=== PATIENT | female | born 1945 | race Caucasian/White ===

== ENCOUNTER 2017-06-11 09:06 | Emergency (ER) | payer MEDICARE, OTHER ==
[2017-06-11] MEDS: HYDROcodone/APAP 5/325MG 1 TAB TABLET PO ×2 (09:54)
[2017-06-11 10:00] LABS: ADD MAN DIFF? NO
[2017-06-11 10:05] LABS: BASO # 0.1 x10^3/uL (0.0-0.2); BASO % 1 % (0-3); EOS # 0.2 x10^3/uL (0.0-0.7); EOS % 2 % (0-3); HEMATOCRIT 46.8 % (36.0-47.0); HEMOGLOBIN 15.5 g/dL (12.0-15.5); LYMPH # 2.6 x10^3/uL (1.0-4.8); LYMPH % 26 % (24-48); MEAN CORPUSCULAR HEMOGLOBIN 29 pg (25-35); MEAN CORPUSCULAR HGB CONC 33 g/dL (31-37); MEAN CORPUSCULAR VOLUME 88 fL (79-100); MONO # 0.6 x10^3/uL (0.0-1.1); MONO % 6 % (0-9); NEUT # 6.4 x10^3uL (1.8-7.7); NEUT % 65 % (31-73); PLATELET COUNT 324 x10^3/uL (140-400); RED BLOOD COUNT 5.31 x10^6/uL (3.50-5.40); RED CELL DISTRIBUTION WIDTH 14.3 % (11.5-14.5); WHITE BLOOD COUNT 9.9 x10^3/uL (4.0-11.0)
[2017-06-11 10:14] LABS: ANION GAP 9 (6-14); BLOOD UREA NITROGEN 18 mg/dL (7-20); BUN/CREATININE RATIO 23 (6-20); CARBON DIOXIDE 30 mmol/L (21-32); CHLORIDE 101 mmol/L (98-107); CREATININE 0.8 mg/dL (0.6-1.0); GFR 71.1; GLUCOSE 126 mg/dL (70-99); POTASSIUM 4.4 mmol/L (3.5-5.1); SODIUM 140 mmol/L (136-145)
[2017-06-11 10:20] LABS: ALBUMIN 3.6 g/dL (3.4-5.0); ALK PHOS 87 U/L (46-116); ALT (SGPT) 23 U/L (14-59); AST (SGOT) 19 U/L (15-37); TOTAL BILIRUBIN 0.4 mg/dL (0.2-1.0); TOTAL PROTEIN 7.3 g/dL (6.4-8.2); URIC ACID 7.5 mg/dL (2.6-6.0)
== END 2017-06-11 11:16 | disposition home or self-care (01) ==
LOC: ER 09:06
DX: M10.9 Gout, unspecified (principal); J44.9 Chronic obstructive pulmonary disease, unspecified; E78.00 Pure hypercholesterolemia, unspecified; E11.9 Type 2 diabetes mellitus without complications; I10 Essential (primary) hypertension; G89.29 Other chronic pain; Z88.0 Allergy status to penicillin; Z88.8 Allergy status to other drugs, medicaments and biological substances; Z91.018 Allergy to other foods
CPT/HCPCS: 36415; 73630; 80053; 84550; 85025; 99285-25

== ENCOUNTER 2017-06-24 16:58 | Inpatient (IN) | payer MEDICARE, OTHER ==
[2017-06-24 18:14] LABS: INFLUENZA A PATIENT NEGATIVE (NEGATIVE); INFLUENZA B PATIENT NEGATIVE (NEGATIVE); OBC FLU VALID
[2017-06-24 18:18] LABS: HEMATOCRIT 43.2 % (36.0-47.0); HEMOGLOBIN 14.4 g/dL (12.0-15.5); MEAN CORPUSCULAR HEMOGLOBIN 29 pg (25-35); MEAN CORPUSCULAR HGB CONC 33 g/dL (31-37); MEAN CORPUSCULAR VOLUME 87 fL (79-100); PLATELET COUNT 370 x10^3/uL (140-400); RED BLOOD COUNT 4.98 x10^6/uL (3.50-5.40); RED CELL DISTRIBUTION WIDTH 14.5 % (11.5-14.5); WHITE BLOOD COUNT 10.2 x10^3/uL (4.0-11.0)
[2017-06-24 18:37] LABS: ALBUMIN 3.2 g/dL (3.4-5.0); ALBUMIN/GLOBULIN RATIO 0.7 (1.0-1.7); ALK PHOS 89 U/L (46-116); ALT (SGPT) 28 U/L (14-59); ANION GAP 6 (6-14); AST (SGOT) 24 U/L (15-37); BLOOD UREA NITROGEN 11 mg/dL (7-20); BUN/CREATININE RATIO 16 (6-20); CALCIUM 9.4 mg/dL (8.5-10.1); CARBON DIOXIDE 33 mmol/L (21-32); CHLORIDE 99 mmol/L (98-107); CREATININE 0.7 mg/dL (0.6-1.0); GLUCOSE 97 mg/dL (70-99); POTASSIUM 4.2 mmol/L (3.5-5.1); SODIUM 138 mmol/L (136-145); TOTAL BILIRUBIN 0.4 mg/dL (0.2-1.0); TOTAL PROTEIN 7.5 g/dL (6.4-8.2)
[2017-06-24] MEDS: ALBUTEROL SULFATE 2.5 MG/3 ML NEBU. NEB (19:30)
[2017-06-24] MEDS: BUDESONIDE 0.5 MG/2 ML NEBU. NEB (19:30)
[2017-06-24] MEDS ORDERED: NON FORMULARY ITEM (Albuterol Sulfate (Ventolin Hfa Inhaler) 2 PUFF) INH (20:00)
[2017-06-24] MEDS: LACTOBACILLUS RHAMNOSUS GG 1 CAPSULE. PO (20:59)
[2017-06-24] MEDS ORDERED: POTASSIUM GLUCONATE 595 MG PO (21:00)
[2017-06-24] MEDS: SIMVASTATIN 40 MG TABLET. PO (21:00)
[2017-06-24] MEDS: LISINOPRIL 20 MG TABLET PO (21:00)
[2017-06-24] MEDS: methylPREDNISolone SOD SUCC PF 125 MG/2 ML VIAL. IV (21:00)
[2017-06-24] MEDS ORDERED: NON FORMULARY ITEM (Diclofenac Sodium 1 TAB) PO (21:00)
[2017-06-24] MEDS ORDERED: NON FORMULARY ITEM (Budesonide/Formoterol Fumarate (Symbicort 160-4.5 Mcg Inhaler) 2 PUFF) IH (21:00)
[2017-06-25] MEDS: BUDESONIDE 0.5 MG/2 ML NEBU. NEB ×2 (07:22→19:19)
[2017-06-25] MEDS: ALBUTEROL SULFATE 2.5 MG/3 ML NEBU. NEB ×4 (07:23→19:20)
[2017-06-25] MEDS: LACTOBACILLUS RHAMNOSUS GG 1 CAPSULE. PO ×2 (08:29→21:17)
[2017-06-25] MEDS: CALCIUM CARBONATE 500 MG TABLET PO (08:29)
[2017-06-25] MEDS: CETIRIZINE HCL 10 MG TABLET. PO (08:29)
[2017-06-25] MEDS: methylPREDNISolone SOD SUCC PF 125 MG/2 ML VIAL. IV ×2 (08:30→21:17)
[2017-06-25] MEDS: MELOXICAM 7.5 MG TABLET PO (08:30)
[2017-06-25] MEDS: metFORMIN XR 500 MG TAB.ER.24H PO ×2 (08:30→17:29)
[2017-06-25] MEDS: PANTOPRAZOLE 40 MG TABLET.DR. PO (08:30)
[2017-06-25] MEDS: IPRATRPIUM/ALBUTEROL 0.5/2.5MG 3 ML NEBU. NEB ×4 (09:00→19:19)
[2017-06-25] MEDS: NICOTINE 21MG PATCH. TD (11:25)
[2017-06-25] MEDS: hydroCHLOROthiazide 12.5 MG CAPSULE PO (11:25)
[2017-06-25] MEDS: ACETAMINOPHEN 500 MG TABLET PO ×2 (11:25→21:18)
[2017-06-25] MEDS: guaiFENesin/CODEINE 100mg/10mg 5 ML LIQUID PO ×2 (15:36→21:17)
[2017-06-25] MEDS: SIMVASTATIN 40 MG TABLET. PO (21:18)
[2017-06-25] MEDS: LISINOPRIL 20 MG TABLET PO (21:18)
[2017-06-26] MEDS: IPRATRPIUM/ALBUTEROL 0.5/2.5MG 3 ML NEBU. NEB ×4 (07:09→19:51)
[2017-06-26] MEDS: BUDESONIDE 0.5 MG/2 ML NEBU. NEB ×2 (07:09→19:51)
[2017-06-26] MEDS: guaiFENesin/CODEINE 100mg/10mg 5 ML LIQUID PO ×2 (08:02→20:16)
[2017-06-26] MEDS: MELOXICAM 7.5 MG TABLET PO (08:02)
[2017-06-26] MEDS: hydroCHLOROthiazide 12.5 MG CAPSULE PO (08:03)
[2017-06-26] MEDS: PANTOPRAZOLE 40 MG TABLET.DR. PO (08:03)
[2017-06-26] MEDS: CETIRIZINE HCL 10 MG TABLET. PO (08:03)
[2017-06-26] MEDS: ACETAMINOPHEN 500 MG TABLET PO (08:03)
[2017-06-26] MEDS: metFORMIN XR 500 MG TAB.ER.24H PO ×2 (08:03→17:49)
[2017-06-26] MEDS: CALCIUM CARBONATE 500 MG TABLET PO (08:03)
[2017-06-26] MEDS: methylPREDNISolone SOD SUCC PF 125 MG/2 ML VIAL. IV (08:04)
[2017-06-26] MEDS: LACTOBACILLUS RHAMNOSUS GG 1 CAPSULE. PO ×2 (08:04→20:16)
[2017-06-26] MEDS: NICOTINE 21MG PATCH. TD (09:04)
[2017-06-26] MEDS: predniSONE 10 MG TABLET PO (09:05)
[2017-06-26] MEDS: SIMVASTATIN 40 MG TABLET. PO (20:16)
[2017-06-26] MEDS: LISINOPRIL 20 MG TABLET PO (20:16)
[2017-06-26] MEDS: BENZOCAINE/MENTHOL LOZENGE. PO (20:16)
[2017-06-26] MEDS: traMADol 50 MG TABLET PO (20:17)
[2017-06-27] MEDS: IPRATRPIUM/ALBUTEROL 0.5/2.5MG 3 ML NEBU. NEB (07:20)
[2017-06-27] MEDS: BUDESONIDE 0.5 MG/2 ML NEBU. NEB (07:20)
[2017-06-27] MEDS: MELOXICAM 7.5 MG TABLET PO (08:44)
[2017-06-27] MEDS: PANTOPRAZOLE 40 MG TABLET.DR. PO (08:44)
[2017-06-27] MEDS: metFORMIN XR 500 MG TAB.ER.24H PO (08:44)
[2017-06-27] MEDS: CETIRIZINE HCL 10 MG TABLET. PO (08:44)
[2017-06-27] MEDS: LACTOBACILLUS RHAMNOSUS GG 1 CAPSULE. PO (08:44)
[2017-06-27] MEDS: predniSONE 10 MG TABLET PO (08:44)
[2017-06-27] MEDS: CALCIUM CARBONATE 500 MG TABLET PO (08:44)
[2017-06-27] MEDS: hydroCHLOROthiazide 12.5 MG CAPSULE PO (08:44)
[2017-06-27] MEDS: NICOTINE 21MG PATCH. TD (08:45)
[2017-06-27] MEDS: guaiFENesin/CODEINE 100mg/10mg 5 ML LIQUID PO (08:45)
== END 2017-06-27 10:55 | disposition home or self-care (01) | DRG 189 ==
LOC: 5 NORTH 06-26 21:30
DX: J96.01 Acute respiratory failure with hypoxia (principal); J44.1 Chronic obstructive pulmonary disease with (acute) exacerbation; E11.9 Type 2 diabetes mellitus without complications; I10 Essential (primary) hypertension; G89.29 Other chronic pain; F17.210 Nicotine dependence, cigarettes, uncomplicated; K58.9 Irritable bowel syndrome, unspecified; K21.9 Gastro-esophageal reflux disease without esophagitis; M19.90 Unspecified osteoarthritis, unspecified site; E78.5 Hyperlipidemia, unspecified; Z90.49 Acquired absence of other specified parts of digestive tract; Z98.49 Cataract extraction status, unspecified eye; Z88.0 Allergy status to penicillin; Z91.018 Allergy to other foods; Z91.048 Other nonmedicinal substance allergy status; Z90.710 Acquired absence of both cervix and uterus; Z90.722 Acquired absence of ovaries, bilateral
CPT/HCPCS: 36415; 71045; 80053; 85027; 87205; 87804; 87804-59; 93005; 94640; 94760; J1956; J2930; J7512; J7613; J7620; J7626

== ENCOUNTER → 2017-07-08 | Outpatient (CLI) | payer MEDICARE, OTHER | END | disposition home or self-care (01) | LOC: KCIC 12:22 | DX: J44.1 Chronic obstructive pulmonary disease with (acute) exacerbation (principal); Z87.891 Personal history of nicotine dependence | CPT/HCPCS: 71046 ==

== ENCOUNTER → 2018-02-11 | Outpatient (CLI) | payer MEDICARE, OTHER ==
[2017-06-27 07:00] VITALS: BP 193/71
[~2018-02-11] MED LIST: ASPI325T11 PO; BUDE10.2 IH; BUPR100T8 PO; CALC600T4 PO; DICL50TA4 PO; DIPH25TA26 PO; GABA-585 PO; HYDR12.58 PO; LACT1CAP2 PO; LEVO500T59 PO; LISI1TAB5 PO; LORA10TA3 PO; MELO15TA23 PO; METF500T9 PO; MULT1TAB PO; OMEP40CA5 PO; OXYC-323 PO; POTA500T5 PO; PRED50TA PO; PROAIR HFA8.5 GM INH; SIMV20TA3 PO; VENTOLIN HFA18 GM INH; allergy pill; calcium; potassium gluconate
--- NOTE | 2018-02-11 17:08 | KCIC ---
KNEE BILAT 3V, SHOULDER BILAT 2+V, HIP RIGHT 2V WITH PELVIS History: Osteoarthritis of the knees. Bilateral shoulder pain. Pain and osteoarthritis of the right hip. History of falls.. Comparison: None are available Three-view left shoulder Lucent lesions at the left humeral head, likely cysts. No acute fracture. No aggressive bone destruction. There is some irregularity of the outer clavicle, suggesting chronic erosion or old trauma. No evidence of dislocation. Hardware identified at the lower cervical spine IMPRESSION: No evidence of acute fracture or dislocation. Suspect chronic erosion or chronic trauma at the outer clavicle. Left humeral head lucencies are likely cysts, compatible with degenerative change or rotator cuff arthropathy. 3 view right shoulder Mild degenerative changes at the acromioclavicular joint with osteophytes. Small calcification adjacent to the greater tuberosity likely calcium hydroxyapatite in the supraspinatus tendon insertion. No evidence of acute fracture or aggressive bone destruction. No dislocation. IMPRESSION: Calcific tendinitis of the supraspinatus tendon. Mild degenerative change. No acute fracture. 3 view right knee No evidence of acute fracture. Joint spaces are intact. No advanced primary osteoarthritis. Minimal spurring at the medial joint compartment Mild vascular calcification. IMPRESSION: No acute radiographic findings. 3 view left knee Minimal marginal spurring at the medial joint compartment. No evidence of advanced primary osteoarthritis. No acute fracture or bone destruction. Soft tissues appear unremarkable. Mild vascular calcification. Mild spurring at the patellofemoral joint. IMPRESSION: No acute radiographic findings. AP pelvis with two-view right hip Severe primary osteoarthritis at the right hip with severe joint space narrowing and marginal osteophytes. No acute fracture or aggressive bone destruction. No evidence of dislocation. Left hip joint appears grossly intact. Partially visualized lower spine demonstrates degenerative spondylosis. IMPRESSION: Severe right hip primary osteoarthritis. Electronically signed by: Giovanni Lewis MD (02/11/2018 5:05 PM) [facility]
== END | disposition home or self-care (01) ==
LOC: KCIC 15:46
PROVIDERS: ATTEND Physician Assistant Medical
DX: M17.0 Bilateral primary osteoarthritis of knee (principal); M25.511 Pain in right shoulder; M25.512 Pain in left shoulder; M16.11 Unilateral primary osteoarthritis, right hip; Z79.84 Long term (current) use of oral hypoglycemic drugs; Z79.899 Other long term (current) drug therapy; Z87.891 Personal history of nicotine dependence
CPT/HCPCS: 73030; 73502; 73562

== ENCOUNTER → 2018-03-03 | Outpatient (CLI) | payer MEDICARE ==
[2017-06-27 07:00] VITALS: BP 193/71
--- NOTE | 2018-03-03 16:39 | KCIC ---
Indication: Rheumatoid arthritis. Bilateral hand pain TECHNIQUE: Multiple views of the bilateral hands COMPARISON: None FINDINGS: Left hand: No acute fracture or dislocation. No periarticular erosions. Mild false CMC joint osteoarthritis. Small calcific density adjacent to the base of the fourth metacarpal bone may suggest an avulsion fracture, age indeterminate. Right hand: No acute fracture or dislocation. Moderate first CMC joint arthritis. Mild interphalangeal joint osteoarthritis. No periarticular erosions. IMPRESSION: As above. Electronically signed by: Bharath Squires DO (03/03/2018 4:35 PM) [facility]
== END | disposition home or self-care (01) ==
LOC: KCIC 10:40
PROVIDERS: ATTEND Internal Medicine Rheumatology
DX: M19.041 Primary osteoarthritis, right hand (principal); M05.79 Rheumatoid arthritis with rheumatoid factor of multiple sites without organ or systems involvement
CPT/HCPCS: 73130

== ENCOUNTER → 2018-03-23 | Outpatient (CLI) | payer MEDICARE ==
[2017-06-27 07:00] VITALS: BP 193/71
[~2018-03-23] MED LIST changes: +BUPIVACAINE MPF 0.5% 10 ML VIAL for KCIC. IJ ONE; +IOHEXOL 300 MG/ML 50 ML VIAL. INT ART ONE; +LIDOCAINE 1% Multi-Dose 20 ML VIAL. ID ONE; +methylPREDNISolone ACETATE 40 MG/ML VIAL. INT ART ONE
--- NOTE | 2018-03-23 17:24 | KCIC ---
PROCEDURE Therapeutic right hip injection using fluoroscopic guidance. HISTORY Hip pain. Pain is chronic. TECHNIQUE The procedure was explained to the patient as were potential risks, including infection, bleeding or allergic reaction. All questions were answered. Informed written and verbal consent was obtained. The hip was prepped and draped in the usual sterile manner. Following administration of local anesthetic, a 22-gauge spinal needle was advanced into the hip joint without difficulty, with care taken to avoid the vascular structures. Stylet was removed and following negative aspiration, a mixture of 4 cc Omnipaque-300, 2 cc (80 mg) Depo-Medrol, 4 cc bupivacaine and 4 cc 1% lidocaine were injected without difficulty. Fluoroscopy demonstrates uniform and satisfactory distribution of the injection through the hip. The needle was removed. There was good hemostasis at the injection site. The patient left in stable condition without immediate complication. Patient was advised as to potential postprocedural complications and advised to contact their physician or the emergency room in such event. A single spot image was obtained. FLUOROSCOPY TIME: 24 seconds Electronically signed by: Giovanni Lewis MD (03/23/2018 5:21 PM) [facility]-KCIC[facility]
== END | disposition home or self-care (01) ==
LOC: KCIC 10:11
PROVIDERS: ATTEND Orthopaedic Surgery Sports Medicine
DX: M25.551 Pain in right hip (principal); G89.29 Other chronic pain; Z88.0 Allergy status to penicillin; Z91.018 Allergy to other foods; Z88.8 Allergy status to other drugs, medicaments and biological substances
CPT/HCPCS: 20610; 77002; J1030; Q9967

== ENCOUNTER → 2018-04-30 | Outpatient (CLI) | payer MEDICARE ==
[2017-06-27 07:00] VITALS: BP 193/71
[~2018-04-30] MED LIST changes: +ALBU2.5V8 INH; -BUPIVACAINE MPF 0.5% 10 ML VIAL for KCIC. IJ ONE; -IOHEXOL 300 MG/ML 50 ML VIAL. INT ART ONE; -LIDOCAINE 1% Multi-Dose 20 ML VIAL. ID ONE; -OXYC-323 PO; +OXYC1TAB15 PO; -PROAIR HFA8.5 GM INH; -methylPREDNISolone ACETATE 40 MG/ML VIAL. INT ART ONE
--- NOTE | 2018-04-30 16:17 | KCIC ---
EXAMINATION: Magnetic resonance imaging (MRI) of the lumbar spine without contrast 04/30/2018 2:00 PM HISTORY: Degenerative disc disease. Surgery in 1988. Low back pain. New right hip pain and recent months. TECHNIQUE: Multiplanar multi-weighted MRI of the lumbar spine was performed without intravenous contrast using the standard lumbar spine protocol. Contrast information: None administered. COMPARISON: None available. FINDINGS: There is minimal retrolisthesis of L5 on S1. Vertebral body heights are maintained. Marrow signal intensity is normal in all sequences with exception of Modic type II endplate degenerative changes at L3-L4 and L5-S1. There is moderate to advanced disc height loss at L3-L4 with endplate irregularity and moderate anterior marginal osteophytosis. There is mild to moderate disc height loss at L5-S1 with vacuum disc phenomenon. Vacuum disc phenomena is noted at L4-L5. Conus medullaris terminates at L1-L2. Distal spinal cord signal intensity is normal in all sequences. There is congenital narrowing of the spinal canal secondary to shortened pedicles. There is disc desiccation at all levels of the lumbar spine. Inferior pole left renal cyst measures 2.9 cm. Visualized portions of the abdominal aorta appear normal. T12-L1: Disc is normal in configuration. There is mild facet arthropathy. No neuroforaminal or spinal canal stenosis. L1-L2: There is a mild circumferential disc bulge. There is a central disc extrusion. There is mild facet arthropathy. There is moderate to severe right and moderate left neuroforaminal stenosis. Mild to moderate spinal canal stenosis. L2-L3: There is a mild disc bulge asymmetric to the left. There is mild facet arthropathy. There is mild left neuroforaminal stenosis. Mild spinal canal stenosis. L3-L4: There is a moderate circumferential disc bulge with left central disc extrusion. There is moderate facet arthropathy. There is severe bilateral neuroforaminal stenosis. There is severe spinal canal stenosis with stenosis of the lateral recess bilaterally. L4-L5: There is a moderate circumferential disc bulge asymmetric to the left. There is moderate facet arthropathy. There is mild to moderate right and moderate to severe left neuroforaminal stenosis. There is narrowing of the left lateral recess. There is mild spinal canal stenosis. L5-S1: There is a central disc extrusion. There is moderate facet arthropathy. There is moderate to severe bilateral neuroforaminal stenosis. There is narrowing of the right lateral recess. There is no significant spinal canal stenosis. IMPRESSION: Moderate to advanced degenerative changes of the lumbar spine, as described in detail above. Electronically signed by: Dorinda Rodgers MD (04/30/2018 3:26 PM) [facility]-KCIC[facility]
== END | disposition home or self-care (01) ==
LOC: KCIC MRI 13:11
PROVIDERS: ATTEND Orthopaedic Surgery Sports Medicine
DX: M51.36 Other intervertebral disc degeneration, lumbar region (principal); M47.896 Other spondylosis, lumbar region; M48.07 Spinal stenosis, lumbosacral region; M12.88 Other specific arthropathies, not elsewhere classified, other specified site; M51.26 Other intervertebral disc displacement, lumbar region; M51.27 Other intervertebral disc displacement, lumbosacral region
CPT/HCPCS: 72148

== ENCOUNTER → 2018-05-28 | Outpatient (CLI) | payer MEDICARE ==
[2017-06-27 07:00] VITALS: BP 193/71
--- NOTE | 2018-05-28 11:14 | KCIC ---
EXAM: Chest and bilateral ribs, 8 views. HISTORY: Pain. COMPARISON: 06/24/2017 and 02/11/2018. FINDINGS: 2 views of the chest and 6 views of the ribs are obtained. There is no infiltrate, pleural effusion or pneumothorax. The heart is normal in size. There is cervical spinal fusion instrumentation. There is a lucent lesion with peripheral sclerosis within the left humeral head measuring 1.7 cm. There is thoracal lumbar scoliosis. No displaced fracture is seen. There is evidence of left distal clavicular resection. IMPRESSION: 1. No acute pulmonary finding or acute osseous finding. 2. Lucent lesion with peripheral sclerosis within the left humeral head. This is increased compared to the prior study dated 06/24/2017 and the degree of peripheral sclerosis is increased compared to a study dated 02/11/2018. Despite evidence of prior left distal clavicular resection, the imaging appearance does not favor a postoperative etiology. This may be a large cyst. However, the lesion remains indeterminant radiographically. Electronically signed by: Julia Contreras MD (05/28/2018 11:09 AM) [place] [id number]
== END | disposition home or self-care (01) ==
LOC: KCIC 10:32
PROVIDERS: ATTEND Physician Assistant Medical
DX: M41.85 Other forms of scoliosis, thoracolumbar region (principal); J44.9 Chronic obstructive pulmonary disease, unspecified; M75.82 Other shoulder lesions, left shoulder
CPT/HCPCS: 71111

== ENCOUNTER → 2018-06-10 | Outpatient (CLI) | payer MEDICARE ==
[2017-06-27 07:00] VITALS: BP 193/71
[~2018-06-10] MED LIST changes: +COLE1TAB2 PO; +HYDR200T5 PO; +MULT-650 PO
--- NOTE | 2018-06-10 22:30 | PAIN ---
DATE OF SERVICE: 06/10/2018 INITIAL CONSULTATION FOR PAIN CLINIC CHIEF COMPLAINT: Low back and bilateral lower extremity pain. HISTORY OF PRESENT ILLNESS: This is a 72-year-old female who presents with history of pain in the low back, bilateral lower extremities, somewhat worse on the right than the left but also with some history of hip pain and right knee pain. She has seen education specialist for who is recommending a total hip replacement. The patient reports her back pain has been present since 1988. She had a lumbar laminectomy with Dr. Tucker in 1988 and a cervical laminectomy in [address] Gan. The patient reports that the pain is worse in the low back, sharp, shooting, intermittent in intensity, worse with standing from a sitting position and also worse with walking more than about 20 minutes as aching and dull across the back, which she has at least sit down and rest. It does awaken her from sleep, depending on what position she lies, usually the right side. It will wake her up 2 to 3 times a night and is worse with greater activity during the day. The patient reports it does not affect her bowel or bladder control but does affect her ability to walk. She holds on to items like handrails, parked cars, furniture and her when she is walking. The patient will use a scooter if she is in the area where she can have access to one at stores for example. The patient reports she has had physical therapy in the past, but it was for her shoulder in 2014, nothing for her back, nothing recently. No chiropractic treatment. No current physical therapies for the back. She is doing some stretching on her own but that is about all. It does not help. The patient reports she takes Aleve as well as hydrocodone, both of which do decrease the pain by about 20%-50%. The patient reports a disability rate from 0-10, 10 being the worst, is a 6 with family and home responsibilities, recreation and social activities, 7 with occupation, 3 with self-care and 5 with life support activities. The patient did have an MRI scan of the lumbar spine performed 04/30/2018 and that shows moderate advanced degenerative changes of the lumbar spine with disk bulges from L1-L2, L2-L3, L3-L4, L4-L5 and L5-S1 with asymmetry to the left at L2-L3; [id number] right and moderate left neural foraminal stenosis at L1-L2; moderate circumferential disk bulge with left central disk extrusion at L3-L4; bilateral neural foraminal stenosis L3-L4; L4-L5 shows [id number] right and moderate to severe left neural foraminal stenosis with mild spinal canal stenosis and [id number] bilateral neural foraminal stenosis at L5-S1. PAST MEDICAL HISTORY: Significant for hypertension, COPD, diabetes, obesity, hiatal hernia, spastic colon, arthritis and history of rotator cuff injury. PAST SURGICAL HISTORY: Previous surgeries include rotator cuff repair in 1997 and 2014, lumbar surgery in in 1997, cervical fusion in 2010, hysterectomy in 1978, appendectomy in 1965, two foot surgeries in the and tonsillectomy in 1967. FAMILY HISTORY: Significant for diabetes and hypertension. SOCIAL HISTORY: The patient drinks one seth a month, smokes about less than a pack a day but has for 50 years, is , lives with her spouse and reports she is currently retired, lives locally in [place], [place]. REVIEW OF SYSTEMS: The patient's review of systems is positive for those items mentioned in history of present illness. All systems reviewed and otherwise negative. It is complete, full and well documented on the patient's chart. PHYSICAL EXAMINATION: VITAL SIGNS: The patient's blood pressure 173/74, pulse is 65, respirations 18 and temperature 2 degrees Fahrenheit. Height is 5 feet 1 inch, weighs 197 pounds. GENERAL: The patient is awake, alert, oriented, appropriate and very pleasant demeanor. HEENT: Head shows normocephalic and atraumatic. Extraocular movements are intact and symmetrical. Oral cavity: Mucous membranes moist and pink. Dentition intact. NECK: Shows anterior throat supple without palpable lymphadenopathy noted. Swallow reflex symmetrical. CHEST: Shows normal with inspection. Breath sounds clear to auscultation bilaterally. HEART: Shows S1 and S2 clear. No murmurs auscultated. ABDOMEN: Soft, obese, nontender and nondistended. No palpable organomegaly is noted. No rebound or guarding demonstrated. BACK: Shows spine grossly in the midline. Slight exaggeration of thoracic kyphosis and some minor flattening of lumbar lordotic curvature. Well healed surgical scars noted in the lumbar distribution. Lumbar paraspinous muscle shows symmetrical on inspection and on palpation shows some mild tenderness but throughout the upper, middle and lower distribution of the paraspinous muscles bilaterally without radiation. The patient has good rotational motion of the lumbar spine, both laterally as well as extension and flexion and minor tenderness with extension but not with forward flexion. No tenderness over the sacrum or sacroiliac regions or the spinous processes with palpation. EXTREMITIES: The patient's lower extremities show deep tendon reflexes 1+ in the patellar and tendo-calcaneus tendons are equal. Motor exam is strong with 5/5 dorsiflexion, extension, quadriceps and hamstring flexion approximately 4/5 but equal and symmetrical. Peripheral pulses are 1+ posterior tibia. No peripheral edema is noted bilaterally. Straight leg raise noted to be positive, mildly but about 35 degrees, which is decreased with knee flexion, right equal to left. Gaenslen's and Cristofer's maneuvers are positive on the right side with Cristofer's maneuver with external rotation but negative on the left side. The patient is able to stand. She is walking with a slight antalgic gait, appears to favor the right lower extremity over the left, but is not using any assistive devices to ambulate. IMPRESSION: 1. This is a 72-year-old female with a long history, low back pain, bilateral lower extremity pain, worse over the past few years, increasing in a radicular quality bilaterally. 2. MRI scan of the lumbar spine as noted. 3. Obesity. 4. Arthritis. 5. Hypertension. 6. Chronic obstructive pulmonary disease. 7. Diabetes. PLAN: Options were discussed with the patient and the patient's spouse who accompanies her to the visit today and she would like to follow most conservative course at this time. We discussed physical therapies. We discussed traction, pool therapy and she would like to have a neurosurgical opinion. She does know and trust Dr. Gan and would like to see his opinion on her lumbar spine. We will arrange an appointment to speak with him and have his professional opinion regarding her lumbar condition and a treatment that he may recommend from that standpoint on. The patient would like to do that prior to any other treatments or therapies and we will arrange this and have her return on as needed basis at this time. MAIKEL SARABIA MD DR: IMANI/chetna JOB#: [id number] / [id number] BERRY Vincent MD
== END | disposition home or self-care (01) ==
LOC: PNCL 10:37
PROVIDERS: ATTEND Anesthesiology
DX: M54.5 Low back pain (principal); M13.872 Other specified arthritis, left ankle and foot; M13.871 Other specified arthritis, right ankle and foot; E66.9 Obesity, unspecified; I10 Essential (primary) hypertension; J44.9 Chronic obstructive pulmonary disease, unspecified; E11.9 Type 2 diabetes mellitus without complications; Z87.891 Personal history of nicotine dependence; Z72.89 Other problems related to lifestyle
CPT/HCPCS: G0463

== ENCOUNTER → 2018-06-12 | Outpatient (CLI) | payer MEDICARE ==
[2017-06-27 07:00] VITALS: BP 193/71
--- NOTE | 2018-06-12 12:51 | KCIC ---
MR of the left shoulder HISTORY: Left shoulder pain. Pain is chronic. Injury July 2017. TECHNIQUE: Routine multiplanar sequences are obtained. FINDINGS: Moderate motion degradation despite repeated attempts of scanning. Acromioclavicular joint demonstrates findings of liver presumed prior subacromial decompression. No acute findings. [place] screws at the humeral head compatible with prior rotator cuff repair. There is some irregularity of the supraspinatus tendon, could be related to the nature of the surgery. There is no measurable rupture or retraction to suggest a significant recurrent tear. Subscapularis tendon is intact. No significant subdeltoid bursal effusion. Mild rotator cuff muscle volume loss. Small glenohumeral joint effusion. At least mild chondromalacia at the glenohumeral joint. No definite labral detachment but evaluation is suboptimal due to the motion. Biceps tendon not seen. No evidence of acute fracture or aggressive bone destruction. IMPRESSION: 1. Evidence of rotator cuff repair. No significant recurrent rupture is seen. 2. Nonvisualized biceps tendon, likely due to a tear. Electronically signed by: Giovanni Lewis MD (06/12/2018 12:47 PM) [facility]
== END | disposition home or self-care (01) ==
LOC: KCIC MRI 11:31
PROVIDERS: ATTEND Physician Assistant Medical
DX: M25.412 Effusion, left shoulder (principal); M94.212 Chondromalacia, left shoulder
CPT/HCPCS: 73221

== ENCOUNTER → 2018-07-06 | Outpatient (CLI) | payer MEDICARE ==
[2017-06-27 07:00] VITALS: BP 193/71
[~2018-07-06] MED LIST changes: +AMLO5TAB10 PO; +DICL75TA PO; +DOCU-109 PO; +HYDR-3164 PO; +METH-38 PO
[2018-07-06 11:11] LABS: BASO # 0.1 x10^3/uL (0.0-0.2); BASO % 1 % (0-3); EOS # 0.2 x10^3/uL (0.0-0.7); EOS % 3 % (0-3); HEMATOCRIT 44.6 % (36.0-47.0); HEMOGLOBIN 14.3 g/dL (12.0-15.5); LYMPH # 2.9 x10^3/uL (1.0-4.8); LYMPH % 34 % (24-48); MEAN CORPUSCULAR HEMOGLOBIN 27 pg (25-35); MEAN CORPUSCULAR HGB CONC 32 g/dL (31-37); MEAN CORPUSCULAR VOLUME 83 fL (79-100); MONO # 0.6 x10^3/uL (0.0-1.1); MONO % 7 % (0-9); NEUT # 4.7 x10^3uL (1.8-7.7); NEUT % 55 % (31-73); PLATELET COUNT 255 x10^3/uL (140-400); RED BLOOD COUNT 5.37 x10^6/uL (3.50-5.40); RED CELL DISTRIBUTION WIDTH 16.7 % (11.5-14.5); WHITE BLOOD COUNT 8.6 x10^3/uL (4.0-11.0)
[2018-07-06 11:37] LABS: ALBUMIN 3.4 g/dL (3.4-5.0); CREATININE 0.8 mg/dL (0.6-1.0); GFR 70.9; POTASSIUM 4.8 mmol/L (3.5-5.1); TOTAL BILIRUBIN 0.5 mg/dL (0.2-1.0); TOTAL PROTEIN 6.9 g/dL (6.4-8.2)
== END | disposition home or self-care (01) ==
LOC: SURGPAT 10:07
PROVIDERS: ATTEND Neurological Surgery
DX: M48.061 Spinal stenosis, lumbar region without neurogenic claudication (principal); M54.16 Radiculopathy, lumbar region; Z88.0 Allergy status to penicillin
CPT/HCPCS: 36415; 80053; 85025; 87641

== ENCOUNTER 2018-07-13 08:28 | Day surgery (SDC) | payer MEDICARE ==
--- NOTE | 2018-07-12 10:26 | PREOP HP ---
DATE OF SERVICE: 07/13/2018. DATE OF SURGERY: 07/13/2018. HISTORY OF PRESENT ILLNESS: The patient is a pleasant 72-year-old, who in 2010, I operated on because of a cervical spine problem. She did well from that surgery. Her current problem is low back pain and pain which radiates in her right hip and right leg as well as her left hip. She feels weakness in her right leg. The problem started in 12/2017. She says she is having some back pain after a fall in 2014, but it became much worse in December. Walking, standing and activity increase her pain. Heat helps her. She is taking 1 [place] per day. She has had injections in the pain clinic without benefit. Most of the pain tends to radiate to the right hip and right inguinal region as well as a right anterior thigh. On the left, most of the pain radiates into his left hip region with some pain in the left leg. PAST MEDICAL HISTORY: Arthritis, hypertension, tonsillitis, diabetes. PAST SURGICAL HISTORY: Appendectomy in 1965, tonsillectomy in 1967, hysterectomy in 1978, left foot surgery in 1998. Nose surgery in 1971 and 1972, rotator cuff surgery in 2014 ACDF 2010, lumbar surgery in 1988. FAMILY HISTORY: Cancer, diabetes, heart problems and disease, hypertension. SOCIAL HISTORY: Retired. . Rarely exercises. Denies substance abuse. Current smoker. Drinks alcohol 1-2 times per month. Drinks coffee daily. ALLERGIES: PENICILLIN AND POISON GABY AND POISON OAK. CURRENT MEDICATIONS: Metformin, colestipol, hydrochlorothiazide, diclofenac, omeprazole, hydrochloride sulfate, amlodipine, atorvastatin, Symbicort, Ventolin, loratadine, probiotic, calcium, Centrum Silver, [place], potassium gluconate. REVIEW OF SYSTEMS: A 12-point review of systems was obtained and is noncontributory except for that mentioned above. PHYSICAL EXAMINATION: NEUROSURGERY EXAMINATION: GENERAL APPEARANCE: Alert, pleasant, no acute distress. HEAD: Normocephalic and atraumatic. SKIN: Warm and dry. MUSCULOSKELETAL: Lumbar paraspinal muscle bulk is normal, restricted range of motion of the lumbar spine, wrwl-[id number]-[id number] tenderness of lower lumbar spine with palpation, normal range of motion of the lower extremities bilaterally. EXTREMITIES: No clubbing, cyanosis or edema. NEUROLOGIC: Alert and oriented x 3, normal recent and remote memory, strength 5/5 in bilateral lower extremities, sensory was intact to light touch in bilateral lower extremities. Reflexes are present and symmetric in the lower extremities bilaterally, negative straight leg raising bilaterally, normal gait. IMAGING: I reviewed a lumbar MRI scan from 04/2018. On that study, the principal problems are L3-L4 where there is severe spinal canal stenosis with bilateral narrowing of the lateral recesses. At L4-L5 on the left, there is significant lateral recess narrowing. ASSESSMENT/PLAN: I believe the problems at L3-L4 and L4-L5 on the left are responsible for her pain. I am recommending bilateral lumbar microdecompressive surgery at those levels. I spoke with her about the surgery and the risks. I spoke about the expected results and expected postop course. She understands. She would like to go ahead. We will make the arrangements. GORGE RANGEL MD DR: JOEL/chetna JOB#: [id number] / [id number] GENET
[~2018-07-13] VITALS: Ht 157.5 cm; Wt 88.6 kg
[~2018-07-13 08:28] MED LIST changes: -AMLO5TAB10 PO; +BACITRACIN 50,000 UNIT in IV NORMAL SALINE 1000ML BAG 1,000 ML IRR ONE; +BUPIVAC MPF-EPI 0.5%-1:200000 30 ML VIAL. ONE; -DOCU-109 PO; +GELATIN SPONGE SIZE 100. ONE; -HYDR-3164 PO; +HYDROmorphone 2 MG/ML VIAL IV PRN; +IV RINGERS,LACTATED 1000ML 1,000 ML IV SCH; +KETOROLAC 60 MG/2 ML INJ FOR OR. ONE; +LIDOCAINE 1% PF 2 ML VIAL. ID PRN; -METH-38 PO; +MORPHINE SULFATE 2 MG/ML VIAL. IV PRN; +ONDANSETRON PF 4 MG/2 ML VIAL. IV PRN; +PROCHLORPERAZINE 10 MG/2 ML VIAL. IV PRN; +THROMBIN TOPICAL 20,000 UNIT SPRAY.SYRN KIT TP ONE; +VANCOMYCIN 1GM IVPB FOR OMNI 250 ML IV PRN; +fentaNYL PF VIAL 100 MCG/2 ML VIAL IV PRN
[2018-07-13] MEDS ORDERED: LIDOCAINE 2% PF 5 ML VIAL. ONE (08:45)
[2018-07-13] MEDS ORDERED: PROPOFOL 20 ML IV ONE (08:45)
[2018-07-13] MEDS ORDERED: ROCURONIUM 50 MG/5 ML VIAL. ONE (08:45)
[2018-07-13] MEDS ORDERED: AMLO5TAB10 PO (09:10)
[2018-07-13] MEDS ORDERED: fentaNYL PF VIAL 100 MCG/2 ML VIAL ONE (09:35)
[2018-07-13] MEDS ORDERED: REMIFENTANIL 2 MG VIAL. IV ONE (09:36)
[2018-07-13] MEDS ORDERED: GLYCOPYRROLATE 1 MG/5 ML VIAL. ONE (10:43)
[2018-07-13] MEDS ORDERED: DESFLURANE > 120 MINUTES IH ONE (11:15)
[2018-07-13] MEDS ORDERED: PROPOFOL 50 ML IV ONE (12:01)
--- NOTE | 2018-07-13 13:30 | DISCH ---
DISCHARGE INSTRUCTIONS Condition on Discharge Condition on Discharge: Stable Activity After Discharge Activity Instructions for Disc: No restrictions, Resume previous activity Other activity instructions: no driving for a week Bathing Instructions: Shower-keep dressing dry Lifting Instructions after Dis: No heavy lifting, No pulling or pushing, Do not lift >10 pounds Weight Bearing Status after Di: No restrictions Diet after Discharge Diet after Discharge: Regular Additional Diet Restrictions: resume home diet Wound Incision Care Other wound/incision instructi: may remove dressing ni 48 hours if dry then may shower, no soaking Checks after Discharge Checks after discharge: Check blood press - daily Contacting the after DC Call your doctor for: Concerns you may have Follow-Up Follow up with: Dr. Rangel's nurse in 2 weeks [phone] GORGE RANGEL MD Jul 13, 2018 13:30
[2018-07-13] MEDS ORDERED: HYDR-3164 PO (13:34)
[2018-07-13] MEDS ORDERED: DOCU-109 PO (13:34)
[2018-07-13] MEDS ORDERED: METH-38 PO (13:37)
[2018-07-13] MEDS: fentaNYL PF VIAL 100 MCG/2 ML VIAL IV PRN ×2 (14:09→14:29)
[2018-07-13] MEDS ORDERED: HYDROcodone/APAP 5/325MG 1 TAB TABLET PO ONE (14:30)
[2018-07-13 15:18] VITALS: BP 148/62
--- NOTE | 2018-07-13 17:07 | OP ---
DATE OF SURGERY: 07/13/2018 PREOPERATIVE DIAGNOSES: 1. Lumbar spinal stenosis, L3-L4. 2. Lateral recess stenosis, left L4-L5. POSTOPERATIVE DIAGNOSES: 1. Lumbar spinal stenosis, L3-L4. 2. Lateral recess stenosis, left L4-L5. OPERATION PERFORMED: 1. Bilateral hemilaminotomies L3-L4 with microdiscectomy bilaterally L3-L4. 2. Left hemilaminotomy with decompression of dura and nerve root, L4-L5. The operation was done with EMG monitoring, fluoroscopy, microscopic dissection, SSEP monitoring. SURGEON: Troy Rangel M.D. RADIOISOTOPE TECHNICIAN: HILLARY Thomas, assisted with the surgery. She assisted with the exposure, microdecompression as well as the closure. OPERATIVE INDICATIONS: The patient is a very pleasant 72-year-old woman who developed intractable back and bilateral lower extremity pain, right greater than left. On imaging studies, she was found to have severe stenosis at L3-L4, combined with left-sided lateral recess narrowing at L4-L5. I recommended bilateral lumbar microsurgery at these levels. I spoke with her about the surgery and the risks, she understood, she wished to go ahead. DESCRIPTION OF PROCEDURE: Following general endotracheal anesthesia, the patient was positioned prone on the Shiraz frame. Her lumbar region was prepped and draped in standard fashion. BJORN hose and AV impulse boots were applied for DVT prophylaxis. The microscope was draped. Fluoroscopy was draped and brought in the field. Monitoring was established. Ancef 2 grams was given less than 1 hour prior to the initiation of surgery. Under fluoroscopic guidance, a midline incision was made extending from L3-L5. It was taken down to skin and subcutaneous tissue and on the right side, I created an exposure at L3-L4. On the left, I created exposure at L3, L4 and L5. I placed a [place] microdisk distractor on the left and brought in the microscope and remainder of the surgery was done with the microscope using microscopic technique. At L3-L4, I burred down a generous hemilaminotomy and also drilled across to the midline, and then working laterally, I drilled lateral to the pedicle and slightly further laterally at the level of the disc. I grasped and peeled away the very thickened ligamentum flavum and fully decompressed the entire region dorsal and dorsal lateral. I did perform partial foraminotomy with a drill as well as the Kerrisons'. After peeling the ligamentum flavum away, then I gently retracted the root and dura medially. There was disc bulging, which was significant, and I incised the annulus and ligament, and I worked and performed getting pituitary rongeurs. A significant portion of the disc was heavily calcified, but there were softer portions which I removed, and as I worked, the region became much better decompressed. I then moved down after obtaining perfect hemostasis to L4-L5 on the left side, and I again drilled a hemilaminotomy. I trimmed away thickened ligamentum flavum, performed a partial foraminotomy and decompressed this level as well. There were a number of epidural veins at this level, which I coagulated. I irrigated copiously. The disc was bulging slightly, but it was calcified and firm and no discectomy was warranted. I then moved to the right side at L3-L4, placed retractor, confirmed my positions fluoroscopically. I burred down a generous hemilaminotomy and trimmed away the very thickened ligamentum flavum performing a partial foraminotomy with both the high speed air drill as well as a 2.5 and 4 mm Kerrison's. I then gently retracted the root and dura immediately. There was again a large bulging disc, portions of which were calcified and portion of which are not. I incised the disc and performed discectomy with pituitary rongeurs, and as I worked, the region became much better decompressed and the dura was easily able to be retracted further medially. I did perform partial foraminotomy. I irrigated copiously and stopped any bleeding with the use of bipolar cautery. There was a large epidural vein over the disc space, which I coagulated as well. At this point, then I felt that I had an excellent decompression. I irrigated copiously, I removed the retractor and assured myself of perfect hemostasis in the muscle. I then closed the wound in layers with absorbable suture. The skin was closed with a 4-0 subcuticular stitch. I was quite pleased with the surgery. TROY RANGEL MD DR: JOEL/chetna JOB#: [id number] / [id number] GENET
--- NOTE | 2018-07-15 16:07 | PATHOLOGY ---
[facility] Accession Number: [id number] . 01 Material submitted: . LUMBAR DECOMPRESSION AND DISC . 01 Clinical history: . Lumbar stenosis, radiculopathy . 02 Diagnosis: Segments of fibrocartilaginous tissue and bone, lumbar decompression and disc: - Degenerative changes of fibrocartilaginous tissue. . (JPM:mml; 07/15/2018) [facility]/07/15/2018 . 02 Comment: There is no evidence of an acute inflammatory process or malignancy. . (JPM:mml; 07/15/2018) . 02 Electronically signed: . Francisco J Donaldson MD, Pathologist NPI- [id number] . 01 Gross description: . Received in formalin labeled "Arianna Acosta, lumbar decompression and disc," are several pieces of glistening, fibrous tissue measuring 6.4 x 2.3 x 0.9 cm in aggregate dimensions, containing small fragments of possible bone. The tissue is submitted representatively in cassette A1, following decalcification. (TSD; 07/13/2018) TOB/TOB . 02 Pathologist provided ICD-10: M51.36 . 02 CPT . 451496 Specimen Comment: A courtesy copy of this report has been sent to Specimen Comment: [phone], . Specimen Comment: Report sent to / DR JHAVERI Performed at: 01 [facility] [address], [place] [id number] MD Rigoberto Barnett MD Phone: [phone] Performed at: 02 [facility] [address] [place], [place] [id number] MD Francisco J Donaldson MD Phone: [phone]
== END 2018-07-13 17:29 | disposition home or self-care (01) ==
LOC: SURG 08:28
PROVIDERS: ATTEND Neurological Surgery
DX: M51.16 Intervertebral disc disorders with radiculopathy, lumbar region (principal); M48.062 Spinal stenosis, lumbar region with neurogenic claudication; I10 Essential (primary) hypertension; E11.9 Type 2 diabetes mellitus without complications; M19.90 Unspecified osteoarthritis, unspecified site; Z88.0 Allergy status to penicillin; Z88.8 Allergy status to other drugs, medicaments and biological substances; Z91.018 Allergy to other foods; Z90.49 Acquired absence of other specified parts of digestive tract; Z98.890 Other specified postprocedural states; Z90.710 Acquired absence of both cervix and uterus; Z83.3 Family history of diabetes mellitus; Z82.49 Family history of ischemic heart disease and other diseases of the circulatory system; Z72.89 Other problems related to lifestyle; F17.210 Nicotine dependence, cigarettes, uncomplicated; Z79.84 Long term (current) use of oral hypoglycemic drugs
CPT/HCPCS: 63030; 63035; 82962; 88304; 88311; 97162; 97530; A7015; J1885; J2001; J2704; J3010; J3370; J3490; J7030; J7120; 76000

== ENCOUNTER → 2018-11-04 | Outpatient (CLI) | payer MEDICARE ==
[~2018-11-04] MED LIST changes: +AMLO5TAB10 PO; -BACITRACIN 50,000 UNIT in IV NORMAL SALINE 1000ML BAG 1,000 ML IRR ONE; -BUPIVAC MPF-EPI 0.5%-1:200000 30 ML VIAL. ONE; +DOCU-109 PO; -GELATIN SPONGE SIZE 100. ONE; +HYDR-3164 PO; -HYDROmorphone 2 MG/ML VIAL IV PRN; -IV RINGERS,LACTATED 1000ML 1,000 ML IV SCH; -KETOROLAC 60 MG/2 ML INJ FOR OR. ONE; -LIDOCAINE 1% PF 2 ML VIAL. ID PRN; +METH-38 PO; -MORPHINE SULFATE 2 MG/ML VIAL. IV PRN; -ONDANSETRON PF 4 MG/2 ML VIAL. IV PRN; -PROCHLORPERAZINE 10 MG/2 ML VIAL. IV PRN; -THROMBIN TOPICAL 20,000 UNIT SPRAY.SYRN KIT TP ONE; -VANCOMYCIN 1GM IVPB FOR OMNI 250 ML IV PRN; -fentaNYL PF VIAL 100 MCG/2 ML VIAL IV PRN
--- NOTE | 2018-11-04 12:05 | KCIC ---
Chest radiograph 11/04/2018 12:00 AM Right rib series INDICATION: Right mid anterior rib pain after fall 2010 days ago. COMPARISON: July 08, 2017 chest radiograph TECHNIQUE: Frontal and lateral views of the chest are provided. 3 views of the right ribs are provided. FINDINGS: The cardiomediastinal silhouette is within normal limits. There are no pleural effusions. There is no pulmonary vascular congestion. There is no pneumothorax. The lungs are clear. Anterior cervical discectomy and fusion hardware is identified at C5-C7. Mildly displaced right posterior lateral sixth rib fracture. IMPRESSION: Mildly displaced right posterior lateral sixth rib fracture. No acute cardiopulmonary process. Electronically signed by: Dorinda Rodgers MD (11/04/2018 12:02 PM) [facility]-KCIC1
== END | disposition home or self-care (01) ==
LOC: KCIC 11:20
PROVIDERS: ATTEND Physician Assistant Medical
DX: S22.31XA Fracture of one rib, right side, initial encounter for closed fracture (principal); W19.XXXA Unspecified fall, initial encounter; Y93.89 Activity, other specified; Y92.89 Other specified places as the place of occurrence of the external cause; Y99.8 Other external cause status
CPT/HCPCS: 71046; 71100

== ENCOUNTER → 2019-01-11 | Outpatient (CLI) | payer MEDICARE ==
[~2019-01-11] MED LIST changes: +LISI1TAB19 PO; -LISI1TAB5 PO; +METF500T11 PO; -METF500T9 PO
--- NOTE | 2019-01-11 14:09 | KCIC ---
Carotid doppler ultrasound History: Right carotid bruit Multiple grayscale, color, and duplex spectral analysis waveform sonographic images were acquired of the carotid, subclavian, and vertebral arteries. Comparison: None Findings: RIGHT: PSV cm/sec EDV cm/sec Common carotid artery 89 19 Maximal internal carotid artery 124 28 External carotid artery 82 Vertebral artery 63 ICA/CCA ratio 1.39 LEFT: PSV cm/sec EDV cm/sec Common carotid artery 93 19 Maximum internal carotid artery 95 29 External carotid artery 130 Vertebral artery 46 ICA/CCA ratio 1.02 Velocities used to determine stenosis are known to correlate with NASCET angiographic criteria. There is antegrade flow in the bilateral vertebral arteries. There is scattered plaque bilaterally of the common carotid arteries as well as the internal and external carotid arteries. There is appearance on the color images of moderate narrowing of the distal left internal carotid artery. Impression: 1. There is no velocity elevation suggestive of a hemodynamically significant stenosis. There is scattered plaque bilaterally. There is probable moderate narrowing of the distal left internal carotid artery. Electronically signed by: Nav Buckley MD (01/11/2019 2:06 PM) [facility]-KCIC1
== END | disposition home or self-care (01) ==
LOC: KCIC US 10:46
PROVIDERS: ATTEND Physician Assistant Medical
DX: I65.23 Occlusion and stenosis of bilateral carotid arteries (principal); I10 Essential (primary) hypertension; E11.9 Type 2 diabetes mellitus without complications; F17.200 Nicotine dependence, unspecified, uncomplicated
CPT/HCPCS: 93880

== ENCOUNTER → 2020-01-19 | Outpatient (CLI) | payer MEDICARE ==
[~2020-01-19] MED LIST changes: -CALC600T4 PO; +CALC600T6 PO; -LISI1TAB19 PO; +LISI1TAB37 PO; +METF-658 PO; -METF500T11 PO; +OMEP40CA45 PO; -OMEP40CA5 PO; +SIMV20TA18 PO; -SIMV20TA3 PO
--- NOTE | 2020-01-19 12:37 | KCIC ---
EXAM: DUAL ENERGY X-RAY ABSORPTIOMETRY (DEXA). HISTORY: Postmenopausal screening. FINDINGS: The lowest measured T-score is -0.1 in the left hip, based on a bone mineral density of 0.933 g/cm^2. Refer to the worksheets for full detail. There has been a 1.4 percent increase in density of the left hip and 1.9 percent increase in density of the lumbar spine compared to a baseline exam performed 01/29/2013. IMPRESSION: Normal. Bone mineral density yields a T-score of -1.0 or greater. Fracture risk is low. METHODOLOGY: Dual energy x-ray absorptiometry was performed to measure bone mineral density. The following analysis is based on the 2019 Official Positions of the International Society for Clinical Densitometry: Measurements of the hips and the average of L1-L4 are preferred. When the spine and/or hip cannot be feasibly measured or interpreted, or in the setting of hyperparathyroidism, distal radial bone mineral density may be measured. The lumbar spine T-score is based on the average bone mineral density of L1-L4. In the setting of artifact or anatomic abnormality, some lumbar levels may be excluded, and the remaining levels used for calculation. A single lumbar level is not used for diagnosis, and if only a single level is available for assessment, another anatomic site will be used to assign a diagnosis. The hip T-score is based on the bone mineral density measurement of the femoral neck or total proximal femur of either side, whichever is lowest. Bilateral mean values are not used for diagnosis. The forearm T-score is derived from 33% of the distal radius of the nondominant forearm. Electronically signed by: Julia Contreras MD (01/19/2020 12:34 PM) [facility]
== END | disposition home or self-care (01) ==
LOC: KCIC DEXA 10:57
PROVIDERS: ATTEND Family Medicine
DX: Z78.0 Asymptomatic menopausal state (principal)
CPT/HCPCS: 77080

== ENCOUNTER → 2020-05-12 | Outpatient (CLI) | payer MEDICARE ==
[~2020-05-12] MED LIST changes: +AMLO-186 PO; -AMLO5TAB10 PO; +ATOR40TA59 PO; -CALC600T6 PO; +CALC600T60 PO; +CHOL4POW11 PO; +DOXY100T PO; +FLUC200T PO; +LISI-130 PO; -OMEP40CA45 PO; +OMEP40CA7 PO
--- NOTE | 2020-05-12 17:01 | KCIC ---
Bilateral digital screening mammograms and tomosynthesis Reason for examination: Routine screening. Comparison is made to previous study dated November 03, 2015 Routine CC and MLO digital views obtained. Interpretation was made with the benefit of CAD. The skin and nipples show no abnormalities. No abnormal lymph nodes are seen. The breast parenchyma i s scattered fibroglandular elements. (Breast density: Category B.) There are no suspicious masses, hoffmann spicious calcifications or architectural distortions. Small glandular asymmetries of the right inner breast mid depth and left outer subareolar breast are stable, benign. At the left inner breast 9:00 position 5 cm from the nipple there is a subcentimeter nodular asymmetr y on CC tomosynthesis image 26 and MLO tomosynthesis image 48, difficult to visualize on the current reconstructed mammographic views, and not apparent on the prior studies, indeterminate as this is onl y apparent on tomosynthesis, further assessment will be necessary. Impression: Left inner breast asymmetry not apparent on prior exams. Further assessment with left sea ast ultrasound is advised. BI-RADS Category 0: Incomplete. Need additional imaging evaluation. "Our facility is accredited by the [employer] Mammography Program." Electronically signed by: Jayant Martin MD (05/12/2020 4:53 PM) [email or web address]
== END ==
LOC: KCIC MAMMO 09:49
PROVIDERS: ATTEND Family Medicine
DX: Z12.31 Encounter for screening mammogram for malignant neoplasm of breast (principal); N64.89 Other specified disorders of breast
CPT/HCPCS: 77063; 77067

== ENCOUNTER → 2020-05-19 | Outpatient (CLI) | payer MEDICARE ==
--- NOTE | 2020-05-19 18:47 | RAD ---
Examination: Left breast ultrasound Limited INDICATION: Screening recall for medial left breast nodule COMPARISON: Left mammogram of 05/12/2020 screening exam FINDINGS: Grayscale and color Doppler imaging of the medial left breast was performed and only identified a superficial 3.5 mm vascular nodule deep to the skin surface that likely represents a tortuous vessel, incidental to the 7 mm nodule identified as reported at the 9:00 position 5 cm from the nipple. No discrete sonographic abnormality was identified and no definite sonographic correlate to the finding recalled from screening on mammography is seen. IMPRESSION: Probably benign nodule in the left breast seen on mammography only. BI-RADS Category 3 Probably benign findings Recommend a six-month follow-up left diagnostic mammogram with possible targeted ultrasound. Patient entered into a reminder system with target due date for next mammogram.
== END | disposition home or self-care (01) ==
LOC: US 14:30
PROVIDERS: ATTEND Family Medicine
DX: Z12.39 Encounter for other screening for malignant neoplasm of breast (principal); N64.89 Other specified disorders of breast
CPT/HCPCS: 76641

== ENCOUNTER → 2020-07-10 | Outpatient (CLI) | payer MEDICARE ==
[2020-06-24 15:00] VITALS: BP 110/67
[~2020-07-10] MED LIST changes: -ATOR40TA59 PO; +CALC600T6 PO; -CALC600T60 PO; -CHOL4POW11 PO; +OMEP40CA45 PO; -OMEP40CA7 PO
--- NOTE | 2020-07-10 15:26 | KCIC ---
EXAM: Chest, 2 views. HISTORY: Pleural effusion follow-up. COMPARISON: 06/22/2020 FINDINGS: 2 views of the chest are obtained. There has been resolution of previously demonstrated ple ural effusions. There is a trace amount of fluid tracking within the left major fissure. There is black pected bilateral lower lobe atelectasis. There is a stable cardiac silhouette. There is no pneumothor ax. There is cervical spinal fusion instrumentation. There has been incidental distal left clavicular resection. IMPRESSION: 1. Resolution of previously demonstrated pleural effusions. 2. Suspected bilateral lower lobe atelectasis and trace fluid tracking along the left pleural fissure . Electronically signed by: Julia Contreras MD (07/10/2020 3:23 PM) [id number]
== END ==
LOC: KCIC 14:59
PROVIDERS: ATTEND Family Medicine
DX: J90 Pleural effusion, not elsewhere classified (principal)
CPT/HCPCS: 71046

== ENCOUNTER → 2020-07-19 | Outpatient (CLI) | payer MEDICARE ==
[2020-06-24 15:00] VITALS: BP 110/67
--- NOTE | 2020-07-20 10:05 | SLEEP ---
DATE OF STUDY: 07/19/2020 SLEEP STUDY REFERRING PHYSICIAN: Berry Lange MD. The patient is a 74-year-old who weighs 211 pounds with a BMI of 40. The patient underwent split night study performed at [facility]. During the night study, the patient spent 429 minutes in bed and slept for 366 minutes with a sleep efficiency of 85%. Sleep latency was 6 minutes with a REM latency of 152 minutes. Sleep architecture showed increased stage 1 and stage 2 sleep, absent N3 sleep and normal REM sleep. During the initial diagnostic portion of the study, the patient slept for 63 minutes. During that time, the patient had 15 obstructive apneas, 7 mixed apneas, 4 central apneas and 74 hypopneas. The patient's AHI was 96 per hour. REM sleep was not seen during the diagnostic portion. Supine sleep was not seen either. EKG monitoring revealed an average heart rate of 51 beats per minute, no sustained arrhythmias observed. Nocturnal oximetry study revealed an average oxygen saturation of 86% with the lowest of 72%. 81% of time, oxygen saturation remained between 80% and 89%. PLMs were seen at index of 67 per hour and 2 per hour caused EEG arousals. The patient met the criteria for CPAP initiation. It was started at 5 cm water and titrated up to 17 cm water. Best results were seen at a pressure of 15 cm water. At that pressure, the patient slept for 161 minutes. The patient's AHI was reduced to only 1.5 per hour. The patient had lateral REM sleep. The patient's oxygen saturations remained above 88%. IMPRESSION: 1. Severe obstructive sleep apnea at an AHI of 96 per hour. 2. Nocturnal hypoxia secondary to obstructive sleep apnea, but resolved with CPAP. 3. Severe periodic limb movements. RECOMMENDATIONS: 1. CPAP at 15 cm water completely eliminated the patient's sleep apnea and should be used on a nightly basis. 2. Follow up in 4-6 weeks to assess compliance with CPAP and to document clinical improvement. 3. Weight loss is advised. 4. 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 5. Cautioned regarding driving until symptoms of sleep apnea resolve with the use of CPAP. NICOLAS FLOYD MD DR: LISA/chetna JOB#: [id number] / [id number] BERRY Vincent MD
== END ==
LOC: RT 19:09
PROVIDERS: ATTEND Internal Medicine Critical Care Medicine
DX: G47.33 Obstructive sleep apnea (adult) (pediatric) (principal); G47.61 Periodic limb movement disorder; G47.34 Idiopathic sleep related nonobstructive alveolar hypoventilation
CPT/HCPCS: 95810

== ENCOUNTER → 2020-07-24 | Outpatient (CLI) | payer MEDICARE ==
[2020-06-24 15:00] VITALS: BP 110/67
== END ==
LOC: LAB 14:56
PROVIDERS: ATTEND Internal Medicine Cardiovascular Disease
DX: Z01.812 Encounter for preprocedural laboratory examination (principal); Z20.822 Contact with and (suspected) exposure to COVID-19
CPT/HCPCS: U0003

== ENCOUNTER 2020-07-27 06:52 | Outpatient (CLI) | payer MEDICARE ==
[2020-07-27] VITALS (10 sets, daily range): BP systolic 131–169; BP diastolic 46–88
[~2020-07-27] VITALS: Ht 154.9 cm; Wt 96.6 kg
[2020-07-27] MEDS ORDERED: IODIXANOL 320 MG/ML 100 ML VIAL. ONE (07:35)
[2020-07-27] MEDS ORDERED: LIDOCAINE 1% Multi-Dose 20 ML VIAL. ONE (07:35)
[2020-07-27] MEDS ORDERED: HEPARIN for ARTERIAL LINE 1,500 ML ONE (07:35)
[2020-07-27 07:36] LABS: HEMATOCRIT 42.4 % (36.0-47.0); HEMOGLOBIN 13.5 g/dL (12.0-15.5); RED BLOOD COUNT 5.43 x10^6/uL (3.50-5.40); RED CELL DISTRIBUTION WIDTH 19.7 % (11.5-14.5); WHITE BLOOD COUNT 8.7 x10^3/uL (4.0-11.0)
[2020-07-27 07:44] LABS: CALCIUM 8.9 mg/dL (8.5-10.1); GFR 54.5; POTASSIUM 4.4 mmol/L (3.5-5.1)
[2020-07-27] MEDS ORDERED: CHOL4POW11 PO (07:56)
[2020-07-27] MEDS ORDERED: ATOR40TA59 PO (07:56)
[2020-07-27 08:22] LABS: PROTHROMBIN TIME PATIENT 12.3 SEC (11.7-14.0)
[2020-07-27] MEDS ORDERED: fentaNYL PF VIAL 100 MCG/2 ML VIAL ONE (08:26)
[2020-07-27] MEDS ORDERED: VERAPAMIL 5 MG/2 ML VIAL. ONE (08:26)
[2020-07-27] MEDS ORDERED: MIDAZOLAM HCL/PF 2 MG/2 ML VIAL. ONE (08:26)
[2020-07-27] MEDS ORDERED: HEPARIN for IV BOLUS 10,000 UNIT/10 ML VIAL. ONE (08:26)
[2020-07-27] MEDS ORDERED: NITROGLYCERIN 200 MCG/2 ML SYRINGE FOR CATH/VASC LAB. ONE (08:26)
[2020-07-27] MEDS ORDERED: IODIXANOL 320 MG/ML 100 ML VIAL. IART ONE (09:00)
[2020-07-27] MEDS ORDERED: fentaNYL PF VIAL 100 MCG/2 ML VIAL IV ONE (09:00)
[2020-07-27] MEDS ORDERED: NITROGLYCERIN 200 MCG/2 ML SYRINGE FOR CATH/VASC LAB. IART ONE (09:00)
[2020-07-27] MEDS ORDERED: HEPARIN for IV BOLUS 10,000 UNIT/10 ML VIAL. IART ONE (09:00)
[2020-07-27] MEDS ORDERED: MIDAZOLAM HCL/PF 2 MG/2 ML VIAL. IV ONE (09:00)
[2020-07-27] MEDS ORDERED: VERAPAMIL 5 MG/2 ML VIAL. IART ONE (09:00)
[2020-07-27] MEDS ORDERED: LIDOCAINE 1% Multi-Dose 20 ML VIAL. INJ ONE (09:00)
--- NOTE | 2020-07-27 10:42 | CARD ---
MR#: [id number] Date of Study: 07/27/2020 Ordering Physician: VU LUJAN, Referring Physician: VU LUJAN, Tech: RT Chintan(R)() APPROVED REPORT Technologist: RT Chintan(R)() Nurse: Lissette Cardenas RN Procedure(s) performed: MODERATE SEDATION TIME: 45 MINUTES FLUORO TIME: 4.1 MIN DOSE:75.9 GYCM2 CONTRAST: 42CC VISI LHC, Coronary angiography, RHC [facility] Clinical Frailty Scale [facility] Clinical Frailty Scale: Mildly Frail Heart Failure Heart Failure: Yes If Yes, Newly Diagnosed: No If Yes, HF Type: Diastolic If Yes, NYHA Class: Class II CASE TECHNIQUE IV conscious sedation was used throughout procedure with appropriate monitoring and was performed in the presence of a registered nurse who was an independent trained observer other than the physician p erforming the procedure. During this case, Fluoroscopy and low osmolar contrast were used for imaging . Specimen(s) Removed: N/A Estimated Blood loss: 15 cc's. PROCEDURE NARRATIVE Clinical information: 74-year-old woman who was seen in the office after a outpatient stress test which revealed inferior w all reversible ischemia. Due to persistent exertional dyspnea a discussion was held with the patient regarding risks and benefits of cardiac catheterization. She was willing to proceed. A previous ec hocardiogram revealed severe pulmonary hypertension with peak systolic pressures of 60 mmHg therefore a right heart catheterization was also performed. Procedure details: After appropriate informed consent the right wrist and right neck were prepped and draped in usual st erile fashion. Via the Seldinger technique a 6 [place] sheath was inserted in the right radial artery under 1% lidocaine local anesthesia. Diagnostic angiography was then performed with a 6 [place] TIG catheter. LVEDP and pullback measurements were made. Subsequently, via ultrasound guidance a 5 Fren ch sheath was placed in the right internal jugular vein. A 5 [place] PA catheter was advanced to the right heart chambers and pressures and saturations were obtained. At case completion the right neck and radial sheaths were removed with manual compression and Terumo radial band, respectively. Findings: RA 10/4 RV 46/0/10 PA 43/13/26 Wedge 20/19/16 LVEDP 13 mmHg PA saturation 76.5 FA saturation 95.5 Barbara cardiac output 5.2 L/min, cardiac index 2.68 L/min with a hemoglobin of 13.5 Aorta: 160/80, no LV to aortic pullback gradient Coronary angiography: Left main is a large-caliber vessel with normal angiographic appearance LAD is a moderate to large caliber vessel with a proximal to mid 50% stenosis D1 is a small caliber vessel with normal angiographic appearance Left circumflex is a moderate to large caliber vessel with an ostial 40% stenosis. OM1 is a moderate caliber vessel with mild luminal irregularities RCA is a moderate to large caliber vessel with mild luminal irregularities Conclusion 1. Normal biventricular filling pressures 2. No significant pulmonary hypertension, mean PA 26 mmHg 3. Normal cardiac output 4. One-vessel noncritical coronary artery disease involving the LAD Recommendations 1. Aspirin 81 mg daily 2. Continue statin therapy 3. Plan for weight loss and exercise regimen and if she has any significant limitations despite aggr essive lifestyle modification and blood pressure control could consider future intervention. Signed by : Vu Lujan, Electronically Approved : 07/27/2020 10:42:14
--- NOTE | 2020-07-27 10:43 | PDOC ---
MODERATE SEDATION ASSESSMENT RISKS/ALTERNATIVES Risks/Alternatives Risks and alternatives of this type of sedation and procedure discussed with: RISK/ALTERNATIVES: Patient H & P ON CHART H & P H & P on chart and reviewed for co-morbid conditions and appropriate labs. H&P ON CHART: Yes STATUS PREG STATUS ASSESSED: N/A MEDS/ALLERGIES REVIEWED Meds/Allergies Reviewed Medications and Allergies including time and route of recently administered narcotics and sedatives. MEDS/ALLERGIES REVIEWED: Yes ASA RATING ASA RATING: II AIRWAY ASSESSMENT Airway Assessment Airway patency, oral function limitations, presence of caps, crowns, dentures, partials, and ability to extend neck assessed. AIRWAY ASSESSMENT: Yes MALLAMPATI SCORE MALLAMPATI SCORE: II PRE-SEDATION ASSESSMENT PRE-SEDATION ASSESSMENT: Yes VU ARANA MD Jul 27, 2020 10:43
--- NOTE | 2020-07-27 12:10 | NUR ---
PIV removed, R radial site re-dressed, Tr band removed. No bleeding noted at site. Armboard present. Educated patient on importance of not using wrist/hand, importance of monitoring for bleeding. Verbalized understanding. is driving patient home. Taken to car via wheelchair. Instructions provided on site care, sedation. All belongings taken w/ patient at time of d/c.
== END 2020-07-27 12:12 | disposition home or self-care (01) ==
LOC: CCL 06:52
PROVIDERS: ATTEND Internal Medicine Cardiovascular Disease
DX: I25.10 Atherosclerotic heart disease of native coronary artery without angina pectoris (principal); R06.00 Dyspnea, unspecified; R94.39 Abnormal result of other cardiovascular function study; I10 Essential (primary) hypertension; J44.9 Chronic obstructive pulmonary disease, unspecified; K21.9 Gastro-esophageal reflux disease without esophagitis; M19.90 Unspecified osteoarthritis, unspecified site; E78.00 Pure hypercholesterolemia, unspecified; E11.42 Type 2 diabetes mellitus with diabetic polyneuropathy; Z85.828 Personal history of other malignant neoplasm of skin; Z98.890 Other specified postprocedural states; Z90.710 Acquired absence of both cervix and uterus; Z79.84 Long term (current) use of oral hypoglycemic drugs; Z72.89 Other problems related to lifestyle; Z88.0 Allergy status to penicillin; Z88.8 Allergy status to other drugs, medicaments and biological substances
CPT/HCPCS: 36415; 76937; 80048; 85027; 85610; 93460; 99152; 99153; C1769; C1892; C1894; J1644; J2250; J3010; J3490; Q9967